=== PATIENT | male | born 1965 | race Caucasian/White ===

== ENCOUNTER 2018-08-21 05:45 | Day surgery (SDC) | payer OTHER ==
[2018-08-21] MEDS ORDERED: MIDAZOLAM HCL 5 MG/5 ML VIAL ONE (06:47)
[2018-08-21] MEDS ORDERED: MEPERIDINE HCL/PF 100 MG/ML AMP ONE (06:47)
[2018-08-21] MEDS ORDERED: SIMETHICONE 40 MG/0.6 ML ML ONE (06:48)
[2018-08-21] MEDS ORDERED: GLYCOPYRROLATE 0.2 MG/ML VIAL ONE ×2 (06:48)
[2018-08-21] MEDS: MIDAZOLAM HCL 5 MG/5 ML VIAL ONE ×2 (07:37→07:39)
[2018-08-21 11:06] VITALS: BP_SYST 123
== END 2018-08-21 09:20 | disposition home or self-care (01) ==
LOC: SDS 05:45 → SMU 05:45 → SDS 09:20
PROVIDERS: ATTEND Colon & Rectal Surgery
DX: D12.6 Benign neoplasm of colon, unspecified (principal); D12.5 Benign neoplasm of sigmoid colon; K57.30 Diverticulosis of large intestine without perforation or abscess without bleeding; M19.90 Unspecified osteoarthritis, unspecified site; I10 Essential (primary) hypertension; K64.4 Residual hemorrhoidal skin tags; E78.5 Hyperlipidemia, unspecified; E55.9 Vitamin D deficiency, unspecified; Z79.899 Other long term (current) drug therapy; F17.200 Nicotine dependence, unspecified, uncomplicated; Z68.41 Body mass index [BMI] 40.0-44.9, adult
CPT/HCPCS: 45380; 45385; 88305; J2175; J2250; 45378; J3490